=== PATIENT | male | born 1960 | race Caucasian/White ===

== ENCOUNTER 2018-04-11 07:56 | Day surgery (SDC) | payer BC ==
[2018-04-11] MEDS ORDERED: FENTAnyl 50 MCG/ML VIAL (09:02)
[2018-04-11] MEDS ORDERED: MIDAZOLAM 1 MG/ML 2 ML INJ ×2 (09:02)
== END 2018-04-11 09:34 | disposition home or self-care (01) ==
LOC: GIL 07:56
DX: Z12.11 Encounter for screening for malignant neoplasm of colon (principal); K57.90 Diverticulosis of intestine, part unspecified, without perforation or abscess without bleeding; K64.8 Other hemorrhoids
CPT/HCPCS: 45378

== ENCOUNTER 2019-03-20 11:40 | Day surgery (SDC) | payer BC ==
[2019-03-20] MEDS: LACTATED RINGER'S 1,000 ML IV (12:56)
[2019-03-20] MEDS ORDERED: CEFAZOLIN 1 GM INJ (13:33)
[2019-03-20] MEDS ORDERED: FENTAnyl 50 MCG/ML VIAL (13:33)
[2019-03-20] MEDS ORDERED: PROPOFOL 20 ML (13:33)
[2019-03-20] MEDS ORDERED: FENTAnyl 50 MCG/ML VIAL IV ×2 (14:00)
[2019-03-20] MEDS ORDERED: MEPERIDINE 25 MG INJ IV (14:00)
[2019-03-20] MEDS ORDERED: HYDROmorphONE 1 MG/5 ML IV SYRINGE IV ×3 (14:00)
[2019-03-20] MEDS ORDERED: hydrALAzine 20 MG INJ IV (14:00)
[2019-03-20] MEDS ORDERED: OXYCODONE/ACETAMINOPHEN (5/325) TAB PO ×2 (14:00)
[2019-03-20] MEDS ORDERED: DIPHENHYDRAMINE 50 MG INJ IV (14:00)
[2019-03-20] MEDS ORDERED: LABETALOL HCL 20MG INJ IV (14:00)
[2019-03-20] MEDS: ONDANSETRON 4 MG INJ IV (15:26)
[2019-03-20] MEDS: FENTAnyl 50 MCG/ML VIAL IV (15:26)
== END 2019-03-20 17:25 | disposition home or self-care (01) ==
LOC: SDS 11:40
DX: N21.0 Calculus in bladder (principal)
CPT/HCPCS: 52317; 88300